=== PATIENT | female | born 1955 | race Caucasian/White ===

== ENCOUNTER 2017-03-11 03:09 | Emergency (ER) | payer MEDICAID ==
[2017-03-11 03:29] VITALS: TEMP 97.7
--- NOTE | 2017-03-11 04:11 | EDPHY ---
H & P Stated Complaint: wasp bite 6 days ago HPI/ROS: Chief Complaint: Right eye swelling status post wasp bite HPI: 61-year-old woman got bit next to her right eye via [place] about 6 days ago. Since that time she has been having increasing swelling and redness at that site. She was seen at urgent care 2 days ago was started on oral antibiotics. Patient states the swelling has gotten worse. No vision changes. No eye irritation. Woke this morning with it pounding in his presenting for further evaluation. ROS: 10 point Review of Systems is negative except as noted in the HPI. Social History: Positive smoking, [no] alcohol, [ no recreational drug use] Family History: [non-contributory] Physical Exam: General: Awake, alert, no acute distress HEENT. She has got a large fluctuant pointing swelling over the lateral aspect of her right eyebrow. There is surrounding erythema. There is no lid edema or erythema. There is no proptosis. She has no pain with extraocular movement. Conjunctiva clear. Neck: Supple, full range of motion without pain - Personal History Current Tetanus/Diphtheria Vaccine: Yes Current Tetanus Diphtheria and Acellular Pertussis (TDAP): Yes Tetanus Vaccine Date: 05/2014 - Medical/Surgical History Hx Asthma: No Hx Chronic Respiratory Disease: No Hx Diabetes: No Hx Cardiac Disease: No Hx Renal Disease: No Hx Cirrhosis: No Hx Alcoholism: No Hx HIV/AIDS: No Hx Splenectomy or Spleen Trauma: No Other PMH: Pneumonia, enlarged thyroid. - Social History Smoking Status: Former smoker Constitutional: Initial Vital Signs Temperature (C) 36.5 C 03/11/17 03:25 Heart Rate 77 03/11/17 03:25 Respiratory Rate 18 03/11/17 03:25 Blood Pressure 160/89 H 03/11/17 03:25 O2 Sat (%) 94 03/11/17 03:25 O2 Delivery Mode Room Air Allergies/Adverse Reactions: Sulfa (Sulfonamide Antibiotics) Allergy (Verified 02/13/14 01:29) SPANDEX Allergy (Uncoded 04/04/16 16:41) Home Medications: Medication Instructions Recorded Cephalexin [Keflex (*)] 03/11/17 Medical Decision Making Procedures: Procedure: Abscess drainage. The patient's abscess was located on the right eyebrow. I obtained verbal consent from the patient to drain the abscess who was informed about the possibility of bleeding and pain. The abscess was incised with 11 blade and a large amount of purulent drainage was expressed. I irrigated the wound and placed some packing. The patient tolerated the procedure well. The procedure was performed by myself. Departure - Departure Disposition: Home, Routine, Self-Care Clinical Impression: Abscess Condition: Good Instructions: Abscess (ED) Additional Instructions: Leave the packing in place for 2 days until removed by your primary care physician. Follow up with your primary care physician in 2 days. Continue taking your antibiotics until they are gone. Return to the emergency depart for increasing pain, spreading redness, fevers, chills, eye pain, vision changes, or any other concerns. Referrals: THADDEUS MORRISSEY [Other] - As per Instructions
[2017-03-11 04:26] VITALS: BP 149/100; PULSE 75; RESP 16; O2SAT 95
== END 2017-03-11 04:27 | disposition home or self-care (01) ==
PROC: 0H91XZZ Drainage of Face Skin, External Approach (ICD-10-PCS; principal; 2017-03-11)
DX: L02.01 Cutaneous abscess of face (principal); Z87.891 Personal history of nicotine dependence